=== PATIENT | male | born 1990 | race Caucasian/White ===

== ENCOUNTER 2020-06-13 22:51 | Emergency (ER) | payer BC ==
[~2020-06-13] VITALS: Ht 162.6 cm; Wt 63.5 kg
[2020-06-13 22:51] VITALS: BP 148/112
== END 2020-06-14 00:22 | disposition home or self-care (01) ==
LOC: ER 22:51
DX: S61.217A Laceration without foreign body of left little finger without damage to nail, initial encounter (principal); W25.XXXA Contact with sharp glass, initial encounter; Y93.89 Activity, other specified; Y92.89 Other specified places as the place of occurrence of the external cause; Y99.8 Other external cause status
CPT/HCPCS: 12001; 73130; 99283; A6403